=== PATIENT | female | born 1975 | race Caucasian/White ===

== ENCOUNTER 2020-05-05 15:58 | Outpatient (CLI) | payer OTHER, SELFPAY ==
--- NOTE | ~2020-05-05 | MM_ITS ---
EXAMINATION: MM screening [facility] BI w niya HISTORY: Screening TECHNIQUE: Craniocaudal and mediolateral oblique 3-D tomosynthesis images were obtained and synthetic 2-D images were generated. CAD analysis was submitted and interpreted. COMPARISON: 04/09/2019 BREAST PARENCHYMAL COMPOSITION: There are scattered areas of fibroglandular density. FINDINGS: There is no evidence of suspicious mass, calcification, or architectural distortion to sugg est malignancy in either breast. There has been no suspicious interval change. IMPRESSION: 1. No mammographic evidence of malignancy. 2. Recommend routine screening mammography in one year. BI-RADS Category 1: Negative Reviewed, dictated and finalized at location A.
== END 2020-05-05 15:59 | disposition home or self-care (01) ==
LOC: ANHIMG 16:02
PROVIDERS: PCP Internal Medicine; Visit Provider Obstetrics & Gynecology
DX: Z12.31 Encounter for screening mammogram for malignant neoplasm of breast (principal)
CPT/HCPCS: 77063; 77067

== ENCOUNTER 2021-05-09 14:27 | Outpatient (CLI) | payer BC, SELFPAY ==
--- NOTE | ~2021-05-09 | MM_ITS ---
EXAMINATION: MM screening [facility] BI w niya HISTORY: Screening mammogram TECHNIQUE: Craniocaudal and mediolateral oblique 3-D tomosynthesis images were obtained and synthetic 2-D images were generated. CAD analysis was submitted and interpreted. COMPARISON: 05/15/2020, 04/09/2019 BREAST PARENCHYMAL COMPOSITION: There are scattered areas of fibroglandular density. FINDINGS: There is no evidence of suspicious mass, calcification, or architectural distortion to sugg est malignancy in either breast. There has been no suspicious interval change. IMPRESSION: 1. No mammographic evidence of malignancy. 2. Recommend routine screening mammography in one year. BI-RADS Category 1: Negative Reviewed, dictated and finalized at location A.
== END 2021-05-09 14:28 | disposition home or self-care (01) ==
LOC: ANHIMG 14:30
PROVIDERS: PCP Internal Medicine; Visit Provider Obstetrics & Gynecology
DX: Z12.31 Encounter for screening mammogram for malignant neoplasm of breast (principal)
CPT/HCPCS: 77063; 77067

== ENCOUNTER 2022-06-28 13:51 | Outpatient (CLI) | payer BC, SELFPAY ==
--- NOTE | ~2022-06-28 | MM_ITS ---
EXAMINATION: MM screening [facility] BI w niya HISTORY: Screening mammogram TECHNIQUE: Craniocaudal and mediolateral oblique 3-D tomosynthesis images were obtained and synthetic 2-D images were generated. CAD analysis was submitted and interpreted. COMPARISON: 05/09/2021, 05/05/2020, 04/09/2019 BREAST PARENCHYMAL COMPOSITION: There are scattered areas of fibroglandular density. FINDINGS: No suspicious mass, calcification, or architectural distortion are identified in either ulysses ast to suggest malignancy. There has been no suspicious interval change. IMPRESSION: 1. No mammographic evidence of malignancy. 2. Recommend routine screening mammography in one year. BI-RADS Category 1: Negative Reviewed, dictated and finalized at location A.
== END 2022-06-28 13:52 | disposition home or self-care (01) ==
PROVIDERS: PCP Internal Medicine; Visit Provider Obstetrics & Gynecology
DX: Z12.31 Encounter for screening mammogram for malignant neoplasm of breast (principal)
CPT/HCPCS: 77063; 77067

== ENCOUNTER 2022-11-08 16:52 | Outpatient (CLI) | payer BC, SELFPAY ==
[2022-11-12 04:00] LABS: FSH 62.9 mIU/mL (***)
[2022-11-14 18:36] LABS: Estradiol, Ultrasensitive 3 pg/mL
== END 2022-11-08 16:53 | disposition home or self-care (01) ==
LOC: ANHLAB 16:54
PROVIDERS: PCP Internal Medicine; Visit Provider Obstetrics & Gynecology
DX: R23.2 Flushing (principal)
CPT/HCPCS: 36415; 82670; 83001

== ENCOUNTER 2023-02-26 01:27 | Day surgery (SDC) | payer BC, SELFPAY ==
[2023-02-16 14:17] VITALS: BMI 32.4
[2023-02-26 06:49] VITALS: BP 123/90; PULSE 83; RESP 17; TEMP 36; O2SAT 98; BMI 32.3
[2023-02-26] MEDS: LACTATED RINGERS 1,000 ML 150 ML IV CONT (06:56)
--- NOTE | 2023-02-26 07:08 | WPDANESEPPF ---
Anes - Initial Pre Proc Eval Procedure: Operation Date: 02/26/23 08:00 Proposed Procedures p Screening Colonoscopy - Stephen Quispe MD Date/Time: 02/26/23 07:08 Surgeon: Stephen Quispe MD Pre Op Diagnosis: neoplasm screening Patient Data Age: 47 Gender: F Height: 1.6 m Weight: 82.7 kg Last Vital Signs Temp 36.0 C L 02/26/23 06:49 Pulse 83 02/26/23 06:49 Resp 17 02/26/23 06:49 BP 123/90 02/26/23 06:49 Pulse Ox 98 02/26/23 06:49 O2 Del Method Room Air 02/26/23 06:49 Allergies Allergy/AdvReac Type Severity Reaction Status Date / Time codeine Allergy Severe SHORTNESS Verified 02/26/23 06:48 OF BREATH Home Medications Medication Instructions Recorded Confirmed Type estradiol 1 mg tablet 1 mg PO DAILY 90 days #90 tabs 02/08/23 02/26/23 Rx progesterone micronized 200 mg 200 mg PO QHS 30 days #30 caps 02/08/23 02/26/23 Rx capsule (Prometrium) semaglutide 1 mg/dose (4 mg/3 mL) 3 mg subcut WEEKLY 02/16/23 02/26/23 History subcutaneous pen injector (Ozempic) Patient hx anesthesia problems: none Family hx anesthesia problems: none Results Review: All pre-operative results and documents have been reviewed as part of the pre-operative evaluation. [facility] Past Medical History Medical History (Updated 02/26/23 @ 07:08 by Jv Madrigal MD) Hot flashes Obesity Surgical History Surgical History History of bladder suspension procedure (2014) History of cholecystectomy (2003) History of dilation and curettage (05/28/19) hscope D&C, Novasure Ablation, Polypectomy; menometrorrhagia, dysmenorrhea, endocervical polyp History of endometrial ablation (05/28/19) hscope D&C, Novasure Ablation, Polypectomy; menometrorrhagia, dysmenorrhea, endocervical polyp History of vascular surgery (2013) (R) leg great saphenous ablation--swelling Family History Family History Father Hypertension Heart disease Alcohol abuse Grandparent Heart disease maternal grandfather Diabetes mellitus maternal grandfather Sibling Alcohol abuse brother Social History Social History Smoking status: Never smoker Alcohol intake: never Substance use: never Substance use type: does not use Living arrangements: with family Additional living arrangements comments: Occupation/Education: occupation Additional occupation/education comments: nurse Gender identity (if verbalized by the patient): Female Sexual Orientation (if Verbalized by the Patient): Straight or Heterosexual Spiritual care concerns: No Anes - Eval Final PreProcedure Day of Procedure 02/26/23 07:08 Patient weight: obese Heart: regular rate and rhythm Lungs: clear to auscultation Airway: Mallampati scale class II Neurological: alert and oriented Last oral intake: >/= 8 hours ASA classification: II Emergent: no Anesthetic plan: proceed Anesthesia type and monitoring: general GIVS and standard monitoring Results Review: All pre-operative results and documents have been reviewed as part of the pre-operative evaluation. Informed Consent: The patient's anesthetic plan and its attendant risks and benefits were discussed with the patient/family/POA. Questions were solicited and answers provided to the satisfaction of the patient/family/POA.
--- NOTE | 2023-02-26 07:50 | PM.HPGS ---
History of Present Illness History of Present Illness Consent: Risks, benefits, and alternatives have been discussed and questions answered. Patient agrees to proceed with procedure. Chief complaint: neoplasm screening Narrative: Sara Hernandez is a 47 year old female here for first screening colonoscopy Review of Systems Constitutional: Constitutional: Denies headache(s) and Denies weakness Eyes: Eyes: Denies blurry vision ENT: Reports Normal hearing present, Denies headache(s) and Denies neck pain Cardiovascular: Cardiovascular: Denies chest pain and Denies dyspnea Respiratory: Respiratory: Denies dyspnea Gastrointestinal: Gastrointestinal: Reports no additional gastrointestinal complaints Genitourinary: Genitourinary: Denies dysuria Musculoskeletal: Musculoskeletal: Denies neck pain Integumentary/Breasts: Skin/Breast: Denies dry skin Neurologic: Reports Normal hearing present, Denies headache(s) and Denies weakness Psychiatric: Psychiatric: Denies anxiety Endocrine: Endocrine: Denies change in body appearance Hematologic/Lymphatic: Hematologic/Lymphatic: Denies easy bleeding Allergic/Immunologic: Allergic/Immunologic: Denies urticaria PMF Past Medical History Medical History (Updated 02/26/23 @ 07:50 by Stephen Quispe MD) Colon cancer screening Hot flashes Obesity Surgical History Surgical History History of bladder suspension procedure (2014) History of cholecystectomy (2003) History of dilation and curettage (05/28/19) hscope D&C, Novasure Ablation, Polypectomy; menometrorrhagia, dysmenorrhea, endocervical polyp History of endometrial ablation (05/28/19) hscope D&C, Novasure Ablation, Polypectomy; menometrorrhagia, dysmenorrhea, endocervical polyp History of vascular surgery (2013) (R) leg great saphenous ablation--swelling Family History Family History Father Hypertension Heart disease Alcohol abuse Grandparent Heart disease maternal grandfather Diabetes mellitus maternal grandfather Sibling Alcohol abuse brother Social History Social History Smoking status: Never smoker Alcohol intake: never Substance use: never Substance use type: does not use Living arrangements: with family Additional living arrangements comments: Occupation/Education: occupation Additional occupation/education comments: nurse Gender identity (if verbalized by the patient): Female Sexual Orientation (if Verbalized by the Patient): Straight or Heterosexual Spiritual care concerns: No Meds Home Medications and Allergies Home Medications Medication Instructions Recorded Confirmed Type estradiol 1 mg tablet 1 mg PO DAILY 90 days #90 tabs 02/08/23 02/26/23 Rx progesterone micronized 200 mg 200 mg PO QHS 30 days #30 caps 02/08/23 02/26/23 Rx capsule (Prometrium) semaglutide 1 mg/dose (4 mg/3 mL) 3 mg subcut WEEKLY 02/16/23 02/26/23 History subcutaneous pen injector (Ozempic) Allergies Allergy/AdvReac Type Severity Reaction Status Date / Time codeine Allergy Severe SHORTNESS Verified 02/26/23 06:48 OF BREATH Vital Signs Vital Signs - 24 hr 02/26/23 06:49 Temperature 96.8 F L Pulse Rate 83 Respiratory Rate 17 Blood Pressure 123/90 Pulse Oximetry 98 Oxygen Delivery Room Air Exam Const: General: comfortable and no acute distress HENMT: Face/Nose/Sinus: Normal nares present Eyes: General: appearance normal, both eyes and all related structures Neck: Neck: no JVD Resp: Auscultation: clear to auscultation bilaterally Cardio: Rate: regular rate Rhythm: regular rhythm GI: Inspection: non-distended GI Palp: Yes Soft to palpation Skin: General skin exam: normal color Neuro: General: gait normal Speech: normal speech Extrem: Gen
[2023-02-26 08:08] VITALS: BP 113/76; PULSE 81; RESP 21; O2SAT 98
[2023-02-26 08:18] VITALS: BP 122/83; PULSE 77; RESP 16; O2SAT 100
[2023-02-26 08:28] VITALS: BP 124/86; PULSE 67; RESP 16; O2SAT 100
== END 2023-02-26 08:39 | disposition home or self-care (01) ==
PROVIDERS: PCP Pediatrics; Visit Provider Internal Medicine Gastroenterology
PROC: 0DJD8ZZ Inspection of Lower Intestinal Tract, Via Natural or Artificial Opening Endoscopic (ICD-10-PCS; CPT 45378; principal; 2023-02-26 08:00)
DX: Z12.11 Encounter for screening for malignant neoplasm of colon (principal); K64.8 Other hemorrhoids; E66.9 Obesity, unspecified; Z68.32 Body mass index [BMI] 32.0-32.9, adult
CPT/HCPCS: 45378; J2704; J7120

== ENCOUNTER 2023-08-22 16:30 | Outpatient (CLI) | payer BC, SELFPAY ==
--- NOTE | ~2023-08-22 | MM_ITS ---
EXAMINATION: MM screening [facility] BI w niya HISTORY: Screening mammogram TECHNIQUE: Craniocaudal and mediolateral oblique 3-D tomosynthesis images were obtained and synthetic 2-D images were generated. CAD analysis was submitted and interpreted. COMPARISON: 06/28/2022, 05/09/2021, 05/05/2020 bilateral screening mammogram examinations BREAST PARENCHYMAL COMPOSITION: There are scattered areas of fibroglandular density. FINDINGS: There is no evidence of suspicious mass, calcification, or architectural distortion to sugg est malignancy in either breast. There has been no suspicious interval change. IMPRESSION: 1. No mammographic evidence of malignancy. 2. Recommend routine screening mammography in one year. BI-RADS Category 1: Negative Reviewed, dictated and finalized at location A. DING TECHNICIAN
== END 2023-08-22 16:31 | disposition home or self-care (01) ==
LOC: ANHIMG 16:33
PROVIDERS: PCP Pediatrics; Visit Provider Obstetrics & Gynecology
DX: Z12.31 Encounter for screening mammogram for malignant neoplasm of breast (principal)
CPT/HCPCS: 77063; 77067

== ENCOUNTER 2025-04-15 08:34 | Outpatient (CLI) | payer BC, SELFPAY ==
--- NOTE | ~2025-04-15 | MM_ITS ---
EXAMINATION: MM screening pollo BI w niya HISTORY: Screening TECHNIQUE: Craniocaudal and mediolateral oblique 3-D tomosynthesis images were obtained and synthetic 2-D images were generated. CAD analysis was submitted and interpreted. COMPARISON: Comparison to multiple prior studies sequentially, with oldest reviewed study dated 04/09. BREAST PARENCHYMAL COMPOSITION: There are scattered areas of fibroglandular density. FINDINGS: There is no evidence of suspicious mass, calcification, or architectural distortion to sug gest malignancy in either breast. IMPRESSION: 1. No mammographic evidence of malignancy. 2. Recommend routine screening mammography in one year. BI-RADS Category 1: Negative Reviewed, dictated and finalized at location B.
--- OUTSIDE RECORDS SUMMARY | 2025-04-15 08:40 | XMS_ITS | Encounter Summary ---
Author Organization [facility] Address [address] [place] [address] Care Team Providers Care Boom Pump Operator Name Role Phone Sean Waller Primary Care Provider [phone]- [phone] Encounter Details Date Type Department Care Team (Late st Contact Info) Description 05/07/2024 [employer] Message [facility] [address] [place] [address] Sean Waller FNP [address] [place] [address] Weight update Social History Tobacco Use Types Packs/Day Years Used Date Smoking Tobacco: Never Passive Smoke Exposure: Never Smokeless Tobacco: Never Alcohol Use Standard Drinks/Week Comments Not Currently 0 (1 standard drink = 0.6 oz pur e alcohol) social AUDIT-C Answer Date Recorded Q1: How often do you have a drink containing alc ohol? Monthly or less 04/23/2020 Average Number of Drinks Not on file 020 Frequency of Binge Drinking Not on file 03/26 PHQ-2 Answer Date Recorded Patient Health Questionnaire-2 Score 0 12/12/2023 Education Answer Date Recorded What is the highest level of school you have completed or the highest degree you have received? Bachelor's degree (e.g., BA, AB, BS) 04/23/2020 Comments No Sex and Gender Information Value Date Recorded Sex Assigned at Female 12/26/2024 7:52 AM CDT Legal Sex Female 5:41 PM CDT Gender Identity Not on file Sexual Orientation Not on file documented as of this encounter Plan of Treatment Not on file documented as of this encounter Visit Diagnoses Not on filedocumented in this encounter Additional Health Concerns Assessment Noted Time PHQ-9 Depression Total Score: 0 04/25/20 21 1:08 PM CDT documented as of this encounter Care Teams Boom Pump Operator Relationship Specialty Start Date End Date Sean Waller FNP [id number] [facility] [address] [place] [address] PCP - General NURSE PRACTITIONER 12/04/22 documented as of this encounter
--- OUTSIDE RECORDS SUMMARY | 2025-04-15 08:40 | XMS_ITS | Encounter Summary ---
Author Organization [facility] Address [address] [place] [id number] Care Team Providers Care Squeegee Operator Name Role Phone Sean Waller Primary Care Provider [phone]- [phone] Encounter Details Date Type Department Care Team (Late st Contact Info) Description 07/17/2024 [email or web address] Message [facility] [address] [place] [address] Sean Waller FNP [address] [place] [address] [employer] 0.5 Social History Tobacco Use Types Packs/Day Years [...] Date Recorded Patient Health Questionnaire-2 Score 0 05/30/2024 Education Answer Date Recorded What is the [...] documented as of this encounter Care Teams Squeegee Operator Relationship Specialty Start Date End Date Sean Waller FNP [id number] [facility] [address] [place] [address] PCP - General NURSE PRACTITIONER 12/04/22 documented as of this encounter
--- OUTSIDE RECORDS SUMMARY | 2025-04-15 08:40 | XMS_ITS | Encounter Summary ---
Author Organization [facility] Address [address] [place] [address] Care Team Providers Care Alcoholism Worker Name Role Phone Sean Waller Primary Care Provider [phone]- [phone] Encounter Details Date Type Department Care Team (Late st Contact Info) Description 09/03/2024 [employer] Message [facility] [address] [place] [address] Sean Waller FNP [phone] [place] [address] [employer] Social History Tobacco Use Types Packs/Day Years [...] documented as of this encounter Care Teams Alcoholism Worker Relationship Specialty Start Date End Date Sean Waller FNP [address] [facility] [address] [place] [address] PCP - General NURSE PRACTITIONER 12/04/22 documented as of this encounter
--- OUTSIDE RECORDS SUMMARY | 2025-04-15 08:40 | XMS_ITS | Continuity of Care Document ---
Author Name [facility] Organization [facility] Care Team Providers Care Warehouse Record Clerk Name Role Phone [facility] Unavailable Unavailable Problems Combined list of problems from Department of Defense and Veterans Affairs facilities. It does not include entries that were removed or entered in error. Problem Status Onset Date Problem Type Date of Resolution Comments Source Diagnosis: ICD-10-CM Z02.89 Encounter for other administrative examinations Active Diagnosis [facility] Diagnosis: ICD-10-CM Z23 Encounter for immunization Active Diagnosis [facility] Immunizations Combined list of available immunizations from the Department of Defense and Veterans [facility] facilities. Immunization Series Date Given Administered By Site Reaction Lot Number CVX Code Drug Transplant Coordinator Status Comments Source INFLUENZA, SPLIT VIRUS, TRIVALENT, PF 2023 LORE BARRERA RIGHT DELTO ID [id number] 140 complet ed [facility] INFLUENZA, INJECTABLE, QUADRIVALENT, PRESERVATIVE FREE 2021 150 complet ed [facility] INFLUENZA, INJECTABLE, QUADRIVALENT, PRESERVATIVE FREE 2020 150 complet ed [facility] Results Combined list of recent chemistry, hematology and other laboratory results from Department of [place] and Veterans Affairs, ranging from 15 months to all on record, depending upon the facility. Order Name Results Value Reference Range Date Interpretation Specimen Comments Source URINALYSI S (STL-PB) COLOR OF URINE Yellow 11/24 Specimen Type: URINE No comment entered. Ordering Provider: BEN BRIAN Report Released Date/Time: Nov 19, 2024 09:39 AM Reporting Lab: [place] [id number] [facility] [address] Performing Lab: [address] [address] [facility] URINALYSI S (STL-PB) BILIRUBIN.T OTAL [PRESENCE] IN URINE BY TEST STRIP Negativ emg/dL 11/24 Specimen Type: URINE No comment entered. Ordering Provider: BEN BRIAN Report Released Date/Time: Nov 19, 2024 09:39 AM Reporting Lab: [address] [address] Performing Lab: [address] URINALYSI S (STL-PB) PH OF URINE BY TEST STRIP 5.5 5.0 - 8.0 11/24 Specimen Type: URINE No comment entered. Ordering Provider: BEN BRIAN Report Released Date/Time: Nov 19, 2024 09:39 AM Reporting Lab: [place] [address] Performing Lab: [address] [phone] [place] [address] URINALYSI S (STL-PB) LEUKOCYTES [#/AREA] IN URINE SEDIMENT BY MICROSCOPY HIGH POWER FIELD 3 /[HPF] 0 - 5 11/24 Specimen Type: URINE No comment entered. Ordering Provider: BEN BRIAN Report Released Date/Time: Nov 19, 2024 09:39 AM Reporting Lab: [address] [address] Performing Lab: [address] [phone] [place] [address] URINALYSI S (STL-PB) ERYTHROCYTE S [#/VOLUME] IN URINE SEDIMENT BY MICROSCOPY HIGH POWER FIELD 1 /[HPF] 0 - 5 11/24 Specimen Type: URINE No comment entered. Ordering Provider: BEN BRIAN Report Released Date/Time: Nov 19, 2024 09:39 AM Reporting Lab: [address] [address] Performing Lab: [address] [address] [facility] URINALYSI S (STL-PB) APPEARANCE OF URINE Clear 11/24 Specimen Type: URINE No comment entered. Ordering Provider: BEN BRIAN Report Released Date/Time: Nov 19, 2024 09:39 AM Reporting Lab: [address] [address] Performing Lab: [address] [address] [facility] URINALYSI S (STL-PB) NITRITE [PRESENCE] IN URINE BY TEST STRIP 2+mg/dL 11/24 H Specimen Type: URINE No comment entered. Ordering Provider: BEN BRIAN Report Released Date/Time: Nov 19, 2024 09:39 AM Reporting Lab: [address] [address] Performing Lab: [address] [address] [facility] URINALYSI S (STL-PB) BACTERIA [PRESENCE] IN URINE SEDIMENT BY LIGHT MICROSCOPY FEW/[HP F] 11/24 Specimen Type: URINE No comment entered. Ordering Provider: BEN BIRAN Report Released Date/Time: Nov 19, 2024 09:39 AM Reporting Lab: [address] [address] Performing Lab: [address] [address] [facility] URINALYSI S (STL-PB) EPITHELIAL CELLS [#/AREA] IN URINE SEDIMENT BY MICROSCOPY LOW POWER FIELD 3 /[HPF] 0 - 5 11/24 Specimen Type: URINE No comment entered. Ordering Provider: BEN BRIAN Report Released Date/Time: Nov 19, 2024 09:39 AM Reporting Lab: [address] [place] [address] Performing Lab: [place] [address] [facility] [address] [facility] URINALYSI S (STL-PB) MUCUS [PRESENCE] IN URINE SEDIMENT BY LIGHT MICROSCOPY RARE/[L PF] 11/24 Specimen Type: URINE No comment entered. Ordering Provider: BEN BRIAN Report Released Date/Time: Nov 19, 2024 09:39 AM Reporting Lab: [address] [address] Performing Lab: [place] [phone] URINALYSI S (L-PB) HYALINE CASTS [#/AREA] IN URINE SEDIMENT BY MICROSCOPY LOW POWER FIELD 1 /[LPF] 0 - 5 11/24 Specimen Type: URINE No comment entered. Ordering Provider: BEN BRIAN Report Released Date/Time: Nov 19, 2024 09:39 AM Reporting Lab: [address] [address] Performing Lab: [address] [phone] [place] [address] URINALYSI S (L-PB) GLUCOSE [MASS/VOLUM E] IN URINE BY TEST STRIP Normalm g/dL 11/24 Specimen Type: URINE No comment entered. Ordering Provider: BEN BRIAN Report Released Date/Time: Nov 19, 2024 09:39 AM Reporting Lab: [address] [address] Performing Lab: [address] [address] [facility] URINALYSI S (L-PB) PROTEIN [MASS/VOLUM E] IN URINE BY TEST STRIP 20 mg/dL 11/24 H Specimen Type: URINE No comment entered. Ordering Provider: BRIAN,BEN SSA E Report Released Date/Time: Nov 19, 2024 09:39 AM Reporting Lab: [place] [phone] Performing Lab: [address] [address] [place] [address] URINALYSI S (STL-PB) URN.UROBILI NOGEN Normalm g/dL 11/24 Specimen Type: URINE No comment entered. Ordering Provider: BEN BRIAN Report Released Date/Time: Nov 19, 2024 09:39 AM Reporting Lab: [place] [phone] Performing Lab: [address] [phone] [place] [address] URINALYSI S (STL-PB) HEMOGLOBIN [MASS/VOLUM E] IN URINE BY TEST STRIP Negativ emg/dL 11/24 Specimen Type: URINE No comment entered. Ordering Provider: BEN BRIAN Report Released Date/Time: Nov 19, 2024 09:39 AM Reporting Lab: [address] [address] Performing Lab: [place] [address] [facility] [phone] [place] [address] URINALYSI S (STL-PB) KETONES [MASS/VOLUM E] IN URINE BY TEST STRIP Negativ emg/dL 11/24 Specimen Type: URINE No comment entered. Ordering Provider: BEN BRIAN Report Released Date/Time: Nov 19, 2024 09:39 AM Reporting Lab: [address] [address] Performing Lab: [address] [address] [facility] URINALYSI S (STL-PB) URN.LEUK.ES T. Negativ emg/dL 11/24 Specimen Type: URINE No comment entered. Ordering Provider: BEN BRIAN Report Released Date/Time: Nov 19, 2024 09:39 AM Reporting Lab: [facility] [address] [facility] [address] Performing Lab: [facility] [address] [place] [address] [facility] URINALYSI S (STL-PB) SPECIFIC GRAVITY OF URINE 1.025 11/24 Specimen Type: URINE No comment entered. Ordering Provider: BEN BRIAN Report Released Date/Time: Nov 19, 2024 09:39 AM Reporting Lab: [address] [address] Performing Lab: [address] [phone] [place] [address] COMPREHEN SIVE METABOLIC PANEL CREATININE [MASS/VOLUM E] IN SERUM OR PLASMA 0.89 mg/dL 0.6 - 1.1 11/24 Specimen Type: PLASMA Comment: No hemolysis noted. Ordering Provider: BEN BRIAN Report Released Date/Time: Nov 19, 2024 09:39 AM Reporting Lab: [facility] [address] [place] [address] Performing Lab: [address] [address] [facility] COMPREHEN SIVE METABOLIC PANEL UREA NITROGEN [MASS/VOLUM E] IN SERUM OR PLASMA 16.1 mg/dL 9.0 - 25.0 11/24 Specimen Type: PLASMA Comment: No hemolysis noted. Ordering Provider: BEN BRIAN Report Released Date/Time: Nov 19, 2024 09:39 AM Reporting Lab: [facility] [address] [place] [address] Performing Lab: [facility] [address] [place] [address] [facility] COMPREHEN SIVE METABOLIC PANEL GLUCOSE [MASS/VOLUM E] IN SERUM OR PLASMA 109 mg/dL 72 - 99 11/24 H Specimen Type: PLASMA Comment: No hemolysis noted. Ordering Provider: BEN BRIAN Report Released Date/Time: Nov 19, 2024 09:39 AM Reporting Lab: [place] [address] [facility] [address] Performing Lab: [place] [address] [facility] [address] [facility] COMPREHEN SIVE METABOLIC PANEL SODIUM [MOLES/VOLU ME] IN SERUM OR PLASMA 138 meq/L 136 - 145 11/24 Specimen Type: PLASMA Comment: No hemolysis noted. Ordering Provider: BEN BRIAN Report Released Date/Time: Nov 19, 2024 09:39 AM Reporting Lab: [place] [address] [facility] [address] Performing Lab: [place] [address] [facility] [address] [facility] COMPREHEN SIVE METABOLIC PANEL POTASSIUM [MOLES/VOLU ME] IN SERUM OR PLASMA 3.8 meq/L 3.5 - 5 11/24 Specimen Type: PLASMA Comment: No hemolysis noted. Ordering Provider: BEN BRIAN Report Released Date/Time: Nov 19, 2024 09:39 AM Reporting Lab: [place] [address] [facility] [address] Performing Lab: [place] [address] [facility] [address] [facility] COMPREHEN SIVE METABOLIC PANEL CHLORIDE [MOLES/VOLU ME] IN SERUM OR PLASMA 108 meq/L 98 - 107 11/24 H Specimen Type: PLASMA Comment: No hemolysis noted. Ordering Provider: BEN BRIAN Report Released Date/Time: Nov 19, 2024 09:39 AM Reporting Lab: [place] [address] [facility] [address] Performing Lab: [place] [address] [facility] [address] [facility] COMPREHEN SIVE METABOLIC PANEL CARBON DIOXIDE, TOTAL [MOLES/VOLU ME] IN SERUM OR PLASMA 22 meq/L 22 - 31 11/24 Specimen Type: PLASMA Comment: No hemolysis noted. Ordering Provider: BEN BRIAN Report Released Date/Time: Nov 19, 2024 09:39 AM Reporting Lab: [address] [address] Performing Lab: [address] [phone] [place] [address] COMPREHEN SIVE METABOLIC PANEL CALCIUM [MASS/VOLUM E] IN SERUM OR PLASMA 9.0 mg/dL 8.4 - 10.4 11/24 Specimen Type: PLASMA Comment: No hemolysis noted. Ordering Provider: BEN BRIAN Report Released Date/Time: Nov 19, 2024 09:39 AM Reporting Lab: [place] [address] [facility] [address] Performing Lab: [address] [address] [facility] COMPREHEN SIVE METABOLIC PANEL PROTEIN [MASS/VOLUM E] IN SERUM OR PLASMA 7.5 g/dL 6 - 8.6 11/24 Specimen Type: PLASMA Comment: No hemolysis noted. Ordering Provider: BEN BRIAN Report Released Date/Time: Nov 19, 2024 09:39 AM Reporting Lab: [address] [address] Performing Lab: [address] [address] [facility] COMPREHEN SIVE METABOLIC PANEL ALBUMIN [MASS/VOLUM E] IN SERUM OR PLASMA 4.2 g/dL 3.4 - 5 11/24 Specimen Type: PLASMA Comment: No hemolysis noted. Ordering Provider: BEN BRIAN Report Released Date/Time: Nov 19, 2024 09:39 AM Reporting Lab: [address] [address] Performing Lab: [place] [address] [facility] [address] [facility] COMPREHEN SIVE METABOLIC PANEL BILIRUBIN.T OTAL [MASS/VOLUM E] IN SERUM OR PLASMA 0.6 mg/dL 0.2 - 1.2 11/24 Specimen Type: PLASMA Comment: No hemolysis noted. Ordering Provider: BEN BRIAN E Report Released Date/Time: Nov 19, 2024 09:39 AM Reporting Lab: [address] [address] Performing Lab: [address] [address] [facility] COMPREHEN SIVE METABOLIC PANEL ALKALINE PHOSPHATASE [ENZYMATIC ACTIVITY/VO LUME] IN SERUM OR PLASMA 66 U/L 40 - 150 11/24 Specimen Type: PLASMA Comment: No hemolysis noted. Ordering Provider: BEN BRIAN E Report Released Date/Time: Nov 19, 2024 09:39 AM Reporting Lab: [address] [address] Performing Lab: [place] [address] [facility] [address] [facility] COMPREHEN SIVE METABOLIC PANEL ASPARTATE AMINOTRANSF ERASE [ENZYMATIC ACTIVITY/VO LUME] IN SERUM OR PLASMA 21 U/L 5 - 34 11/24 Specimen Type: PLASMA Comment: No hemolysis noted. Ordering Provider: BEN BRIAN E Report Released Date/Time: Nov 19, 2024 09:39 AM Reporting Lab: [address] [address] Performing Lab: [place] [address] [facility] [address] [facility] COMPREHEN SIVE METABOLIC PANEL ALANINE AMINOTRANSF ERASE [ENZYMATIC ACTIVITY/VO LUME] IN SERUM OR PLASMA 22 U/L 8 - 40 11/24 Specimen Type: PLASMA Comment: No hemolysis noted. Ordering Provider: BEN BRIAN Report Released Date/Time: Nov 19, 2024 09:39 AM Reporting Lab: [address] [address] Performing Lab: [address] COMPREHEN SIVE METABOLIC PANEL GLOMERULAR FILTRATION RATE/1.73 SQ M.PREDICTED [VOLUME RATE/AREA] IN SERUM, PLASMA OR BLOOD BY CREATININE- BASED FORMULA (CKD-EPI 2020) 79.9 60 11/24 Specimen Type: PLASMA Comment: No hemolysis noted. Ordering Provider: BEN BRIAN Report Released Date/Time: Nov 19, 2024 09:39 AM Reporting Lab: [place] [address] Performing Lab: [address] CBC LEUKOCYTES [#/VOLUME] IN BLOOD BY AUTOMATED COUNT 5.7 10*3/uL 3.6 - 11.2 11/24 Specimen Type: BLOOD No comment entered. Ordering Provider: BEN BRIAN Report Released Date/Time: Nov 19, 2024 09:39 AM Reporting Lab: [place] [address] Performing Lab: [address] CBC ERYTHROCYTE S [#/VOLUME] IN BLOOD BY AUTOMATED COUNT 4.43 10*6/uL 3.60 - 5.00 11/24 Specimen Type: BLOOD No comment entered. Ordering Provider: BEN BRIAN Report Released Date/Time: Nov 19, 2024 09:39 AM Reporting Lab: [place] [address] Performing Lab: [address] [address] [facility] CBC HEMOGLOBIN [MASS/VOLUM E] IN BLOOD 13.6 g/dL 11.0 - 14.9 11/24 Specimen Type: BLOOD No comment entered. Ordering Provider: BEN BRIAN Report Released Date/Time: Nov 19, 2024 09:39 AM Reporting Lab: [address] [address] Performing Lab: [address] [address] [facility] CBC HEMATOCRIT [VOLUME FRACTION] OF BLOOD 40.3 32.6 - 43.4 11/24 Specimen Type: BLOOD No comment entered. Ordering Provider: BEN BRIAN Report Released Date/Time: Nov 19, 2024 09:39 AM Reporting Lab: [address] [address] Performing Lab: [address] [address] [facility] CBC MCV [ENTITIC VOLUME] BY AUTOMATED COUNT 91.0 fL 80.0 - 100.0 11/24 Specimen Type: BLOOD No comment entered. Ordering Provider: BEN BRIAN Report Released Date/Time: Nov 19, 2024 09:39 AM Reporting Lab: [address] [address] Performing Lab: [address] [address] [facility] CBC MCH [ENTITIC MASS] BY AUTOMATED COUNT 30.7 pg 27.0 - 34.0 11/24 Specimen Type: BLOOD No comment entered. Ordering Provider: BEN BRIAN Report Released Date/Time: Nov 19, 2024 09:39 AM Reporting Lab: [address] [address] Performing Lab: [address] [address] [facility] CBC MCHC [MASS/VOLUM E] BY AUTOMATED COUNT 33.7 g/dL 33.0 - 36.0 11/24 Specimen Type: BLOOD No comment entered. Ordering Provider: BEN BRIAN Report Released Date/Time: Nov 19, 2024 09:39 AM Reporting Lab: [address] [address] Performing Lab: [address] [address] [facility] CBC PLATELETS [#/VOLUME] IN BLOOD BY AUTOMATED COUNT 219 10*3/uL 150 - 400 11/24 Specimen Type: BLOOD No comment entered. Ordering Provider: BEN BRIAN Report Released Date/Time: Nov 19, 2024 09:39 AM Reporting Lab: [address] [address] Performing Lab: [address] [address] [facility] CBC PLATELET MEAN VOLUME [ENTITIC VOLUME] IN BLOOD BY AUTOMATED COUNT 10.5 fL 7.5 - 11.2 11/24 Specimen Type: BLOOD No comment entered. Ordering Provider: BEN BRIAN Report Released Date/Time: Nov 19, 2024 09:39 AM Reporting Lab: [address] [address] Performing Lab: [address] [address] [facility] CBC ERYTHROCYTE DISTRIBUTIO N WIDTH [RATIO] BY AUTOMATED COUNT 12.2 11.8 - 15.1 11/24 Specimen Type: BLOOD No comment entered. Ordering Provider: BEN BRIAN Report Released Date/Time: Nov 19, 2024 09:39 AM Reporting Lab: [address] [address] Performing Lab: [facility] [address] [facility] [address] [facility] CBC LYMPHOCYTES /100 LEUKOCYTES IN BLOOD BY AUTOMATED COUNT 43 11/24 Specimen Type: BLOOD No comment entered. Ordering Provider: BEN BRIAN Report Released Date/Time: Nov 19, 2024 09:39 AM Reporting Lab: [facility] [address] [facility] [address] Performing Lab: [facility] [address] [facility] [address] [facility] CBC MONOCYTES/1 00 LEUKOCYTES IN BLOOD BY AUTOMATED COUNT 6 11/24 Specimen Type: BLOOD No comment entered. Ordering Provider: BEN BRIAN Report Released Date/Time: Nov 19, 2024 09:39 AM Reporting Lab: [facility] [address] [facility] [address] Performing Lab: [facility] [address] [facility] [address] [facility] CBC NEUTROPHILS /100 LEUKOCYTES IN BLOOD BY AUTOMATED COUNT 49 11/24 Specimen Type: BLOOD No comment entered. Ordering Provider: BEN BRIAN Report Released Date/Time: Nov 19, 2024 09:39 AM Reporting Lab: [facility] [address] [facility] [address] Performing Lab: [facility] [address] [facility] [address] [facility] CBC EOSINOPHILS /100 LEUKOCYTES IN BLOOD BY AUTOMATED COUNT 2 11/24 Specimen Type: BLOOD No comment entered. Ordering Provider: BEN BRIAN Report Released Date/Time: Nov 19, 2024 09:39 AM Reporting Lab: [facility] [address] [facility] [address] Performing Lab: [facility] [address] [facility] [address] [facility] CBC BASOPHILS/1 00 LEUKOCYTES IN BLOOD BY AUTOMATED COUNT 0 11/24 Specimen Type: BLOOD No comment entered. Ordering Provider: BEN BRIAN Report Released Date/Time: Nov 19, 2024 09:39 AM Reporting Lab: [address] [address] Performing Lab: [address] [phone] CBC LYMPHOCYTES [#/VOLUME] IN BLOOD BY AUTOMATED COUNT 2.41 10*3/uL 0.77 - 4.50 11/24 Specimen Type: BLOOD No comment entered. Ordering Provider: BEN BRIAN Report Released Date/Time: Nov 19, 2024 09:39 AM Reporting Lab: [place] [phone] Performing Lab: [place] [phone] [facility] CBC MONOCYTES [#/VOLUME] IN BLOOD BY AUTOMATED COUNT 0.36 10*3/uL 0.19 - 0.80 11/24 Specimen Type: BLOOD No comment entered. Ordering Provider: BEN BRIAN Report Released Date/Time: Nov 19, 2024 09:39 AM Reporting Lab: [address] [address] Performing Lab: [address] [address] [facility] CBC NEUTROPHILS [#/VOLUME] IN BLOOD BY AUTOMATED COUNT 2.75 10*3/uL 2.10 - 8.00 11/24 Specimen Type: BLOOD No comment entered. Ordering Provider: BEN BRIAN Report Released Date/Time: Nov 19, 2024 09:39 AM Reporting Lab: [address] [address] Performing Lab: [address] [phone] CBC EOSINOPHILS [#/VOLUME] IN BLOOD BY AUTOMATED COUNT 0.12 10*3/uL 0.00 - 0.60 11/24 Specimen Type: BLOOD No comment entered. Ordering Provider: BEN BRIAN Report Released Date/Time: Nov 19, 2024 09:39 AM Reporting Lab: [place] [address] Performing Lab: [address] CBC BASOPHILS [#/VOLUME] IN BLOOD BY AUTOMATED COUNT 0.02 10*3/uL 0.00 - 0.20 11/24 Specimen Type: BLOOD No comment entered. Ordering Provider: BEN BRIAN Report Released Date/Time: Nov 19, 2024 09:39 AM Reporting Lab: [place] [address] Performing Lab: [address] VITAMIN D, 25-HYDROX Y 25-HYDROXYV ITAMIN D3 [MASS/VOLUM E] IN SERUM OR PLASMA 41.6 ng/mL 30 - 96 11/24 Specimen Type: SERUM No comment entered. Ordering Provider: BEN BRIAN Report Released Date/Time: Nov 19, 2024 09:39 AM Reporting Lab: [place] [address] Performing Lab: [place] [address] [place] [id number] HGA1C HEMOGLOBIN A1C/HEMOGLO BIN.TOTAL IN BLOOD 5.6 4.0 - 6.0 11/24 Specimen Type: BLOOD No comment entered. Ordering Provider: BEN BRIAN Report Released Date/Time: Nov 19, 2024 09:39 AM Reporting Lab: [place] [address] Performing Lab: [address] [address] [facility] B12 COBALAMIN (VITAMIN B12) [MASS/VOLUM E] IN SERUM OR PLASMA 676 pg/mL 213 - 816 11/24 Specimen Type: SERUM No comment entered. Ordering Provider: BEN BRIAN Report Released Date/Time: Nov 19, 2024 09:39 AM Reporting Lab: [place] [phone] Performing Lab: [place] [phone] TSH W/ REFLEX FT4 (STL) THYROTROPIN [UNITS/VOLU ME] IN SERUM OR PLASMA 1.708 u[IU]/m L 0.47 - 5 11/24 Specimen Type: PLASMA No comment entered. Ordering Provider: BEN BRIAN Report Released Date/Time: Nov 19, 2024 09:39 AM Reporting Lab: [address] [address] Performing Lab: [place] [phone] [place] [address] LIPID PANEL (STL) CHOLESTEROL [MASS/VOLUM E] IN SERUM OR PLASMA 216 mg/dL 0 - 200 11/24 H Specimen Type: PLASMA Comment: No hemolysis noted. Ordering Provider: BEN BRIAN Report Released Date/Time: Nov 19, 2024 09:39 AM Reporting Lab: [address] [address] Performing Lab: [place] [phone] [place] [address] LIPID PANEL (STL) TRIGLYCERID E [MASS/VOLUM E] IN SERUM OR PLASMA 93 mg/dL 0 - 150 11/24 Specimen Type: PLASMA Comment: No hemolysis noted. Ordering Provider: BRIAN,BEN SSA E Report Released Date/Time: Nov 19, 2024 09:39 AM Reporting Lab: [place] [address] [facility] [address] Performing Lab: [place] [address] [facility] [address] [facility] LIPID PANEL (STL) CHOLESTEROL IN LDL [MASS/VOLUM E] IN SERUM OR PLASMA BY CALCULATION 119 mg/dL 11/24 Specimen Type: PLASMA Comment: No hemolysis noted. Ordering Provider: BEN BRIAN Report Released Date/Time: Nov 19, 2024 09:39 AM Reporting Lab: [address] [address] Performing Lab: [place] [address] [facility] [phone] [place] [address] LIPID PANEL (STL) CHOLESTEROL IN HDL [MASS/VOLUM E] IN SERUM OR PLASMA 78 mg/dL 40 11/24 Specimen Type: PLASMA Comment: No hemolysis noted. Ordering Provider: BEN BRIAN Report Released Date/Time: Nov 19, 2024 09:39 AM Reporting Lab: [place] [address] [facility] [address] Performing Lab: [place] [address] [facility] [id number] [place] [address] URINALYSI S (STL-PB) COLOR OF URINE Light-Y ellow Specimen Type: URINE No comment entered. Ordering Provider: BEN BRIAN Report Released Date/Time: Nov 20, 2023 02:26 PM Reporting Lab: [facility] [address] Performing Lab: [facility] [id number] [place] [address] URINALYSI S (STL-PB) BILIRUBIN.T OTAL [PRESENCE] IN URINE BY TEST STRIP Negativ emg/dL Specimen Type: URINE No comment entered. Ordering Provider: BEN BRIAN Report Released Date/Time: Nov 20, 2023 02:26 PM Reporting Lab: [facility] [place] [address] Performing Lab: [facility] [facility] URINALYSI S (STL-PB) PH OF URINE BY TEST STRIP 5.5 5.0 - 8.0 Specimen Type: URINE No comment entered. Ordering Provider: BEN BRIAN Report Released Date/Time: Nov 20, 2023 02:26 PM Reporting Lab: [facility] [place] [address] Performing Lab: [facility] DIVISION URINALYSI S (STL-PB) LEUKOCYTES [#/AREA] IN URINE SEDIMENT BY MICROSCOPY HIGH POWER FIELD 6 /[HPF] 0 - 5 H Specimen Type: URINE No comment entered. Ordering Provider: BEN BRIAN Report Released Date/Time: Nov 20, 2023 02:26 PM Reporting Lab: [facility] [place] [address] Performing Lab: [facility] DIVISION URINALYSI S (STL-PB) ERYTHROCYTE S [#/VOLUME] IN URINE SEDIMENT BY MICROSCOPY HIGH POWER FIELD 2 /[HPF] 0 - 5 Specimen Type: URINE No comment entered. Ordering Provider: BEN BRIAN Report Released Date/Time: Nov 20, 2023 02:26 PM Reporting Lab: [facility] [place] [address] Performing Lab: [facility] [facility] URINALYSI S (STL-PB) APPEARANCE OF URINE Clear Specimen Type: URINE No comment entered. Ordering Provider: BEN BRIAN Report Released Date/Time: Nov 20, 2023 02:26 PM Reporting Lab: [facility] [place] [address] Performing Lab: [facility] URINALYSI S (STL-PB) NITRITE [PRESENCE] IN URINE BY TEST STRIP 1+mg/dL H Specimen Type: URINE No comment entered. Ordering Provider: BEN BRIAN Report Released Date/Time: Nov 20, 2023 02:26 PM Reporting Lab: [facility] [place] [address] Performing Lab: [facility] DIVISION URINALYSI S (STL-PB) BACTERIA [PRESENCE] IN URINE SEDIMENT BY LIGHT MICROSCOPY OCC/[HP F] Specimen Type: URINE No comment entered. Ordering Provider: BEN BRIAN Report Released Date/Time: Nov 20, 2023 02:26 PM Reporting Lab: [facility] [place] [address] Performing Lab: [facility] DIVISION URINALYSI S (STL-PB) EPITHELIAL CELLS [#/AREA] IN URINE SEDIMENT BY MICROSCOPY LOW POWER FIELD 7 /[HPF] 0 - 5 Specimen Type: URINE No comment entered. Ordering Provider: BEN BRIAN Report Released Date/Time: Nov 20, 2023 02:26 PM Reporting Lab: [facility] [place] [address] Performing Lab: [facility] [place] [id number] DIVISION URINALYSI S (STL-PB) MUCUS [PRESENCE] IN URINE SEDIMENT BY LIGHT MICROSCOPY RARE/[L PF] Specimen Type: URINE No comment entered. Ordering Provider: BEN BRIAN Report Released Date/Time: Nov 20, 2023 02:26 PM Reporting Lab: [facility] [place] [address] Performing Lab: [facility] DIVISION URINALYSI S (L-PB) GLUCOSE [MASS/VOLUM E] IN URINE BY TEST STRIP Normalm g/dL Specimen Type: URINE No comment entered. Ordering Provider: BEN BRIAN Report Released Date/Time: Nov 20, 2023 02:26 PM Reporting Lab: [facility] [place] [address] Performing Lab: [facility] DIVISION URINALYSI S (STL-PB) PROTEIN [MASS/VOLUM E] IN URINE BY TEST STRIP Negativ emg/dL - 20 Specimen Type: URINE No comment entered. Ordering Provider: BEN BRIAN Report Released Date/Time: Nov 20, 2023 02:26 PM Reporting Lab: [facility] [place] [address] Performing Lab: [facility] DIVISION URINALYSI S (STL-PB) URN.UROBILI NOGEN Normalm g/dL Specimen Type: URINE No comment entered. Ordering Provider: BEN BRIAN Report Released Date/Time: Nov 20, 2023 02:26 PM Reporting Lab: [facility] [place] [address] Performing Lab: [facility] DIVISION URINALYSI S (STL-PB) HEMOGLOBIN [MASS/VOLUM E] IN URINE BY TEST STRIP Negativ emg/dL Specimen Type: URINE No comment entered. Ordering Provider: BEN BRIAN Report Released Date/Time: Nov 20, 2023 02:26 PM Reporting Lab: [facility] [place] [address] Performing Lab: [facility] DIVISION URINALYSI S (STL-PB) KETONES [MASS/VOLUM E] IN URINE BY TEST STRIP Negativ emg/dL Specimen Type: URINE No comment entered. Ordering Provider: BEN BRIAN Report Released Date/Time: Nov 20, 2023 02:26 PM Reporting Lab: [facility] [place] [address] Performing Lab: [facility] DIVISION URINALYSI S (STL-PB) URN.LEUK.ES T. 75 mg/dL H Specimen Type: URINE No comment entered. Ordering Provider: BEN BRIAN Report Released Date/Time: Nov 20, 2023 02:26 PM Reporting Lab: [facility] [place] [address] Performing Lab: [facility] DIVISION URINALYSI S (STL-PB) SPECIFIC GRAVITY OF URINE 1.014 1.005 - 1.029 Specimen Type: URINE No comment entered. Ordering Provider: BEN BRIAN Report Released Date/Time: Nov 20, 2023 02:26 PM Reporting Lab: [facility] [place] [address] Performing Lab: [facility] DIVISION COMPREHEN SIVE METABOLIC PANEL CREATININE [MASS/VOLUM E] IN SERUM OR PLASMA 0.95 mg/dL 0.60 - 1.10 Specimen Type: PLASMA Comment: No hemolysis noted. Ordering Provider: BEN BRIAN Report Released Date/Time: Nov 20, 2023 02:26 PM Reporting Lab: [facility] [place] [address] Performing Lab: [facility] DIVISION COMPREHEN SIVE METABOLIC PANEL UREA NITROGEN [MASS/VOLUM E] IN SERUM OR PLASMA 13.1 mg/dL 9.0 - 25.0 Specimen Type: PLASMA Comment: No hemolysis noted. Ordering Provider: BEN BRIAN Report Released Date/Time: Nov 20, 2023 02:26 PM Reporting Lab: [facility] [place] [address] Performing Lab: [facility] DIVISION COMPREHEN SIVE METABOLIC PANEL GLUCOSE [MASS/VOLUM E] IN SERUM OR PLASMA 92 mg/dL 72 - 99 Specimen Type: PLASMA Comment: No hemolysis noted. Ordering Provider: BEN BRIAN Report Released Date/Time: Nov 20, 2023 02:26 PM Reporting Lab: [facility] [place] [address] Performing Lab: [facility] [place] [facility] DIV[facility] COMPREHEN SIVE METABOLIC PANEL SODIUM [MOLES/VOLU ME] IN SERUM OR PLASMA 138 meq/L 136 - 145 Specimen Type: PLASMA Comment: No hemolysis noted. Ordering Provider: BEN BRIAN Report Released Date/Time: Nov 20, 2023 02:26 PM Reporting Lab: [facility] [place] [address] Performing Lab: [facility] DIVISION COMPREHEN SIVE METABOLIC PANEL POTASSIUM [MOLES/VOLU ME] IN SERUM OR PLASMA 4.3 meq/L 3.5 - 5.0 Specimen Type: PLASMA Comment: No hemolysis noted. Ordering Provider: BEN BRIAN Report Released Date/Time: Nov 20, 2023 02:26 PM Reporting Lab: [facility] [place] [address] Performing Lab: [facility] DIVISION COMPREHEN SIVE METABOLIC PANEL CHLORIDE [MOLES/VOLU ME] IN SERUM OR PLASMA 107 meq/L 98 - 107 Specimen Type: PLASMA Comment: No hemolysis noted. Ordering Provider: BEN BRIAN Report Released Date/Time: Nov 20, 2023 02:26 PM Reporting Lab: [facility] [place] [address] Performing Lab: [facility] DIVISION COMPREHEN SIVE METABOLIC PANEL CARBON DIOXIDE, TOTAL [MOLES/VOLU ME] IN SERUM OR PLASMA 23 meq/L 22 - 31 Specimen Type: PLASMA Comment: No hemolysis noted. Ordering Provider: BEN BRIAN Report Released Date/Time: Nov 20, 2023 02:26 PM Reporting Lab: [facility] [place] [address] Performing Lab: [facility] DIVISION COMPREHEN SIVE METABOLIC PANEL CALCIUM [MASS/VOLUM E] IN SERUM OR PLASMA 9.2 mg/dL 8.4 - 10.4 Specimen Type: PLASMA Comment: No hemolysis noted. Ordering Provider: BEN BRIAN Report Released Date/Time: Nov 20, 2023 02:26 PM Reporting Lab: [facility] [place] [address] Performing Lab: [facility] DIVISION COMPREHEN SIVE METABOLIC PANEL PROTEIN [MASS/VOLUM E] IN SERUM OR PLASMA 7.6 g/dL 6.0 - 8.6 Specimen Type: PLASMA Comment: No hemolysis noted. Ordering Provider: BEN BRIAN Report Released Date/Time: Nov 20, 2023 02:26 PM Reporting Lab: [facility] [place] [address] Performing Lab: [facility] DIVISION COMPREHEN SIVE METABOLIC PANEL ALBUMIN [MASS/VOLUM E] IN SERUM OR PLASMA 4.3 g/dL 3.4 - 5.0 Specimen Type: PLASMA Comment: No hemolysis noted. Ordering Provider: BEN BRIAN Report Released Date/Time: Nov 20, 2023 02:26 PM Reporting Lab: [facility] [place] [address] Performing Lab: [facility] DIVISION COMPREHEN SIVE METABOLIC PANEL BILIRUBIN.T OTAL [MASS/VOLUM E] IN SERUM OR PLASMA 0.4 mg/dL 0.2 - 1.2 02/29 /2024 Specimen Type: PLASMA Comment: No hemolysis noted. Ordering Provider: BEN BRIAN Report Released Date/Time: Nov 20, 2023 02:26 PM Reporting Lab: [facility] [place] [address] Performing Lab: [facility] DIVISION COMPREHEN SIVE METABOLIC PANEL ALKALINE PHOSPHATASE [ENZYMATIC ACTIVITY/VO LUME] IN SERUM OR PLASMA 83 U/L 40 - 150 Specimen Type: PLASMA Comment: No hemolysis noted. Ordering Provider: BEN BRIAN Report Released Date/Time: Nov 20, 2023 02:26 PM Reporting Lab: [facility] [place] [address] Performing Lab: [facility] DIVISION COMPREHEN SIVE METABOLIC PANEL ASPARTATE AMINOTRANSF ERASE [ENZYMATIC ACTIVITY/VO LUME] IN SERUM OR PLASMA 15 U/L 5 - 34 Specimen Type: PLASMA Comment: No hemolysis noted. Ordering Provider: BEN BRIAN Report Released Date/Time: Nov 20, 2023 02:26 PM Reporting Lab: [facility] [place] [address] Performing Lab: [facility] DIVISION COMPREHEN SIVE METABOLIC PANEL ALANINE AMINOTRANSF ERASE [ENZYMATIC ACTIVITY/VO LUME] IN SERUM OR PLASMA 14 U/L 8 - 40 Specimen Type: PLASMA Comment: No hemolysis noted. Ordering Provider: BEN BRIAN Report Released Date/Time: Nov 20, 2023 02:26 PM Reporting Lab: [facility] [place] [address] Performing Lab: [facility] [id number] [facility] COMPREHEN SIVE METABOLIC PANEL GLOMERULAR FILTRATION RATE/1.73 SQ M.PREDICTED [VOLUME RATE/AREA] IN SERUM, PLASMA OR BLOOD BY CREATININE- BASED FORMULA (CKD-EPI 2020) 74.37 60 Specimen Type: PLASMA Comment: No hemolysis noted. Ordering Provider: BEN BRIAN Report Released Date/Time: Nov 20, 2023 02:26 PM Reporting Lab: [facility] [phone] Performing Lab: [facility] [id number] [facility] Encounters Combined list of: 1) Encounters from Department of [facility] facilities going backup to the last 18 months, not all [place] inpatient encounters are included; 2) Encounters from the Department of Defense facilities going backup to 280 months. Location Location Details Encounter Type Encounter Number Reason For Visit Attending Provider ADM Date DC Date Status Disposition Source [facility] OFF/OP EST JANUARY X REQ PHY/QHP [id number] Diagnos is: ICD-10- CM Z02.89 [place] for other adminis trative examina tions David PARRISH ODD A 11/[address] [facility] [place] [id number] Diagnos is: ICD-10- CM Z23 Encount er for immuniz ation LIZETTE BARRERA L 08/18 [facility] OFF/OP EST JANUARY X REQ PHY/QHP [id number] Diagnos is: ICD-10- CM Z02.89 Encount er for other adminis trative examina tions David PARRISH ODD A 11/19 [facility] N
--- OUTSIDE RECORDS SUMMARY | 2025-04-15 08:40 | XMS_ITS | Encounter Summary ---
Author Organization [facility] Address [address] [place] [address] Care Team Providers Care Executive Officer Name Role Phone Sean Waller Primary Care Provider [phone]- [phone] Encounter Details Date Type Department Care Team (Late st Contact Info) Description 06/17/2024 C8 [employer] Message [facility] [address] [place] [address] Sean Waller FNP [address] [place] [address] [employer] Social History Tobacco Use [...] documented as of this encounter Care Teams Executive Officer Relationship Specialty Start Date End Date Sean Waller FNP [address] [facility] [address] [place] [address] PCP - General NURSE PRACTITIONER 12/04/22 documented as of this encounter
--- OUTSIDE RECORDS SUMMARY | 2025-04-15 08:40 | XMS_ITS | Encounter Summary ---
Author Organization [facility] Address [address] [place] [address] Care Team Providers Care Research/Program Director Name Role Phone Elieser Basurto MD Primary Care Provider U Marla Cruz [facility] Primary Care Provider + Sean Waller [facility] Primary Care Provider [phone] Encounter Details Date Type Department Care Team (Late st Contact Info) Description 05/19/2021 Prediculoust Message Enc [facility] Family & Internal Medicine [address] [address] Elieser Basurto MD RE: Question Social History Tobacco Use Types Packs/Day Years Used Date Smoking Tobacco: Never Smokeless Tobacco: Never Alcohol Use Standard Drinks/Week Comments Yes 0 (1 standard drink = 0.6 oz pur e alcohol) social AUDIT-C Answer Date Recorded Q1: How often do you have a drink containing alc ohol? Monthly or less 04/23/2020 Average Number of Drinks Not on file 020 Frequency of Binge Drinking Not on file 03/26 PHQ-2 Answer Date Recorded PHQ-2 Score - If the patient scores above 3, please move on to questions 3-9 0 04/25/2021 Education Answer Date Recorded What is the highest level of school you have completed or the highest degree you have received? Bachelor's degree (e.g., BA, AB, BS) 04/23/2020 Comments No Sex and Gender Information Value Date Recorded Sex Assigned at Female 12/26/2024 7:52 AM CDT Legal Sex Female 5:41 PM CDT Gender Identity Not on file Sexual Orientation Not on file COVID-19 Exposure Response Date Recorded In the last month, have you been in contact with someone who was confirmed or suspected to have Coronavirus / COVID-19? No / Unsure 04/25/2021 12:59 PM CDT documented as of this encounter Plan of Treatment Not on file documented as of this encounter Visit Diagnoses Not on filedocumented in this encounter Additional Health Concerns Assessment Noted Time PHQ-9 Depression Total Score: 0 04/25/20 21 1:08 PM CDT documented as of this encounter Care Teams Research/Program Director Relationship Specialty Start Date End Date Elieser Basurto MD PCP - General INTERNAL MEDICINE 03/25/20 12/02/22 Marla Estevez FNP- [address] [place] [address] PCP - General NURSE PRACTITIONER 12/03/22 12/03/22 Sean Waller FNP [address] [facility] [address] [place] [address] PCP - General NURSE PRACTITIONER 12/04/22 documented as of this encounter
--- OUTSIDE RECORDS SUMMARY | 2025-04-15 08:40 | XMS_ITS | Clinical Summary ---
Author Organization [facility] Address [facility] [place] [address] Care Team Providers Care Glassware Maker Name Role Phone WallerSean Primary Care Provider [phone] Allergies Active Allergy Reactions Criticality Noted Date Comments Codeine Shortness of Breath High 09/01/2014 Medications Multiple Vitamin (MULTIVITAMIN) capsule Take 1 capsule by mouth daily. Active estradiol (ESTRACE) 1 MG tablet Take 1.5 tablets (1.5 mg total) by mouth daily. 3 Active progesterone (PROMETRIUM) 200 MG capsule Take 1 capsule (200 mg total) by mouth nightly at bedtime. 3 Active TRI-JOSE 0.01-4-0.05 % Cream as needed. 2 Active estradiol (ESTRACE) 0.5 MG tablet Take 1 tablet (0.5 mg total) by mouth daily. for 30 days 4 Active Hydroquinone 4 % Cream APPLY TOPICALLY TO FACE AT BEDTIME 4 Active cetirizine (ZYRTEC) 10 MG tablet Take 1 tablet (10 mg total) by mouth nightly. Active metFORMIN ER (GLUCOPHAGE-XR) 500 MG 24 hr tabletIndication s:Class 1 obesity due to excess calories without serious comorbidity with body mass index (BMI) of 32.0 to 32.9 in adult Take 1 tablet (500 mg total) by mouth daily with breakfast. 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 Chloasma 09/29/2014 Milia 09/29/2014 Resolved Problems Problem Noted Date Diagnosed Date Resolved Date Menorrhagia 11/21/2022 12/16/2023 Annual visit for general alesha lt medical examination without abnormal findings 04/23/2020 Immunizations Immunization Administration Dates Next Due Fluzone Adult - >Age 3 (Pref illed Syringe) 06/24/2020 Hepatitis B 11/16/1994,05/25/1994,03/20/1994 Influenza (Generic) 08/18/2024 Influenza Adult (Generic) 08/19/2024,,06/24/2022,2020,07/03/2019 Tdap (Adacel) 04/23/2020 Family History Medical History Relation Comments Heart Disease Father NH Father agent orange Father Diabetes Maternal Grandfather Heart Disease Maternal Grandfather Hypertension Maternal Grandfather No Known Problems Mother Relation Status Comments Father Maternal Grandfather Mother Alive Social History Tobacco Use Types Packs/Day Years Used Date Smoking Tobacco: Never Passive Smoke Exposure: Never Smokeless Tobacco: Never Tobacco Cessation:Counseling Given: Not Answered Alcohol Use Standard Drinks/Week Comments Not Currently 0 (1 standard drink = 0.6 oz pur e alcohol) social AUDIT-C Answer Date Recorded Q1: How often do you have a drink containing alc ohol? Monthly or less 04/23/2020 Average Number of Drinks Not on file 020 Frequency of Binge Drinking Not on file 03/26 PHQ-2 Answer Date Recorded Patient Health Questionnaire-2 Score 0 12/26/2024 Education Answer Date Recorded What is the highest level of school you have completed or the highest degree you have received? Bachelor's degree (e.g., BA, AB, BS) 04/23/2020 Comments No Sex and Gender Information Value Date Recorded Sex Assigned at Female 12/26/2024 7:52 AM CDT Legal Sex Female 5:41 PM CDT Gender Identity Not on file Sexual Orientation Not on file Last Filed Vital Signs Vital Sign Reading Time Taken Comments Blood Pressure 116/72 12/26/2024 7:54 AM CDT Pulse 82 12/26/2024 7:54 AM CDT Temperature 36.6 C (97.8 F) 12/26/2024 7:54 AM CDT Respiratory Rate 16 12/26/2024 7:54 AM CDT Oxygen Saturation 98% 12/26/2024 7:54 AM CDT Inhaled Oxygen Concentration - - Weight 87.1 kg (192 lb) 12/26/2024 7:54 AM CDT Height 164.5 cm (5' 4.75) 12/26/2024 7:54 AM CD T Body Mass Index 32.2 12/26/2024 7:54 AM CDT Plan of Treatment Health Maintenance Due Date Last Done Comments Hepatitis C 1994 Cervical Cancer Screening Pap with HPV Testing (Age 30 to 64) Every 5 Years 2006 COVID-19 Vaccine ( season) 2024 10/01/2020, 09/10/2020 Mammogram Screening 08/22/2024 08/22/2023, 06/28/2022, 05/09/2021, Additional history exists Cervical Cancer Screening Pap Smear (Age 30 to 64) Every 3 Years 08/24/2025 Cervical Cancer Screening with HPV 08/24/2025 Annual Physical 12/26/2025 12/26/2024, 11/23, 04/25/2021, Additional history exists DTaP, Tdap and Td Vaccines (2 - Td or Tdap) 04/23/2030 04/23/2020 Colorectal Cancer Screening Colonoscopy (10 Years) 02/26/2033 02/26/2023 Hepatitis B Vaccines Completed 11/16/1994, 05/25/1994, 03/20/1994 PHQ-2 (Physician [place]) Completed 12/26/2024 Meningococcal B Vaccine Aged Out No l onger eligible based on patient's age to complete this topic Meningococcal Vaccine Aged Out No keren rajwinder eligible based on patient's age to complete this topic Pneumococcal Vaccine: Pediatrics (0 to 5 Years) and At-Risk Patients (6 to 49 Years) Aged Out No longer eligible based on patient's age to complete this topic RSV Immunizations Under 20 Months Aged Out No longer eligible based on patient's age to complete this topic Procedures Procedure Name Priority Date/Time Associated Diagnosis Comments MAMMOGRAM GENERIC (SCAN ORDER) 08/22/2023 COLONOSCOPY GENERIC (SCAN ORDER) 02/26/2023 from Last 3 Months or Most Recently Relevant to Health Maintenance Results * MAMMOGRAM GENERIC (SCAN ORDER) (08/22/2023) Anatomical Region Laterality Modality Other 08/22/2023 [facility] Scanned SCANNING Final Resu lt * COLONOSCOPY GENERIC (02/26/2023) 02/26/2023 [facility] Scanned SCANNING Final Resu lt from Last 3 Months or Most Recently Relevant to Health Maintenance Insurance Care Teams Glassware Maker Relationship Specialty Start Date End Date Sean Waller FNP [address] [facility] [address] [place] [address] PCP - General NURSE PRACTITIONER 12/04/22
== END 2025-04-15 08:35 | disposition home or self-care (01) ==
LOC: ANHIMG 08:37
PROVIDERS: PCP Pediatrics; Visit Provider Obstetrics & Gynecology
DX: Z12.31 Encounter for screening mammogram for malignant neoplasm of breast (principal)
CPT/HCPCS: 77063; 77067